=== PATIENT | female | born 1930 | race Caucasian/White ===

== ENCOUNTER 2017-04-10 15:24 | Emergency (ER) | payer MEDICARE, OTHER ==
[~2017-04-10] VITALS: Ht 157.5 cm; Wt 61.2 kg
--- NOTE | 2017-04-10 15:29 | Emergency Room Report ---
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 Clinical Suspician of Infection? Mental Status: Sepsis Risk: Have you (or family members/close friends) recently traveled outside the [place]? If Yes, where/when: Have you had exposure to infectious disease within the past month? TB? Other? Specify: Source patient, RN notes reviewed Exam Limitations no limitations Comment Pt saw Dr. Rodriguez on . She lives alone and family is concerned because she has been acting differently and this happened in the past and was associated with a severe UTI where she was admitted to [facility] for awhile. She has been complaining of a burning sensation in her epigastrium as well and the family is concerned as she is not acting herself and is more volatile towards her sons. Cardiac Chest Pain Chest pain indicative of cardiac No ALLERGIES Coded Allergies: No Known Allergies (04/10/17) Home Medications Active Scripts Fluticasone Propionate (Flonase 50 Mcg Nasal [place]) 1 SPRAY NA BID #1 BOT Prov: 03/31/16 Reported Medications Dofetilide (Tikosyn) 0.25 MG PO BID Rosuvastatin Calcium (Crestor) 40 MG PO DAILY Metoprolol Succinate Xl (Toprol Xl) 50 MG PO BID Torsemide 10 MG PO DAILY Glimepiride 4 MG PO DAILY Apixaban (Eliquis) 2.5 MG PO BID Donepezil HCl (Donepezil 5MG) 5 MG PO DAILY SERTRALINE HCL (Sertraline HCl) 100 MG PO QHS Isosorbide Mononitrate (Imdur) 120 MG PO DAILY POTASSIUM CHL (Potassium Chloride) 10 MEQ PO BID Quetiapine Fumarate (Quetiapine 25MG) 12.5 MG PO BID Telmisartan (Micardis) 80 MG PO DAILY ASPIRIN (Aspirin) 81 MG PO DAILY Montelukast Sodium (Singulair) 10 MG PO QHS History Medical History General CAD? No Angina: Yes [place]: Yes Hypertension? Yes Hyperlipidemia? Yes CHF? No DVT? No PE? No COPD? No Asthma? No Anemia? No GERD? No Gastric ulcers? No GI Bleed? No Hernia? No Thyroid Problems? No Hypothyroidism? No CVA? No Seizures? No Diabetes? Yes Insulin Dependent: No Insulin Pump: No Home FSBS? Yes Renal Insuffiency? No End Stage Renal Disease? No UTI? Yes Stones? No BPH? No GB Disease: Yes Nephritic Syndrome? No Asplenia? No Hepatitis? No Sickle Cell Disease? No Arthritis? No Migraines? No Cataracts? Yes Glaucoma? No MRSA? No HIV? No TB? No Anxiety? No Depression? No Cancer? No More? No Immunization Hx DT/Tetanus NOT SURE Flu 2011-FSN Pneumonia 1-4 YRS Surgical Hx Previous Surgery?Y [place] LEIF CARDIAC STENT PLACEMENT 3 ABLASION FOR A -FIB PACEMAKER PLACEMENT CATARACTS Family History Family Hx Diabetes Yes CAD No Hypertension Yes Hyperlipidemia Yes Cancer Yes TB No Social History Alcohol Alcohol: No Review of Systems All Other Systems Reviewed and Negative Constitutional see HPI Gastrointestinal see HPI Genitourinary see HPI. Psychiatric/Neurological see HPI Physical Exam Vital Signs Vital Signs Date Time Temp Pulse Resp B/P Pulse O2 O2 Flow FiO2 Ox Delivery Rate 04/10 1533 98.7 75 18 115/67 98 General Appearance normal appearance, WD/WN, no apparent distress Respiratory Status No: respiratory distress. Lung Sounds bilateral: normal breath sounds. Cardiovascular irregularly irregular Peripheral Pulses Pulses normal Yes Gastrointestinal normal exam, non tender Neurologic disoriented x 3, demented Medical Decision Making LABS/Meds/Orders Pt receiving controlled substance in ED? No Results/Orders Laboratory Tests 04/10/17 1620: Sodium 136, Potassium 4.6, Chloride 100, Carbon Dioxide 30, BUN 27 H, Creatinine 0.9, Estimated Creat Clear 43 L, Estimated GFR (MDRD) 59, Glucose 182 H, Calcium 9.6, Total Bilirubin 0.3, AST 21, ALT 40, Alkaline Phosphatase 80, Creatine Kinase 43, CK-MB (CK-2) Rel Index 1.2, CK and CKMB Interp < 0.5, Troponin I < 0.02, Total Protein 6.9, Albumin 3.7, Globulin 3.2, Albumin/ Globulin Ratio 1.2, WBC 5.1, RBC 3.74 L, Hgb 11.0 L, Hct 33.8 L, MCV 90.5, RDW 14.1, Plt Count 131 L, Gran % 66.8, Gran # 3.4, Lymphocytes % 28.3, Monocytes % 4.9, Lymphocytes # 1.4, Monocytes # 0.2, PUBS MCHC 32.5, MCH 29.4 Current Medication Orders Sig/Henrietta Start time Last Medication Dose Route Stop Time Status Admin Sodium Chloride 1,000 ML .STK-MED ONE 04/10 161 DC IV Sodium Chloride 10 ML PRN PRN 04/10 1600 AC IV 04/11 155 Sodium Chloride 1,000 ML .[id number] 04/10 1600 AC 04/10 IV 04/11 0353 1616 Sodium Chloride 10 ML PRN PRN 04/10 1600 AC IV 04/11 155 Orders Procedure Date/time Status 12 LEAD EKG-LEA (INITIAL) 04/10 1553 Active ELECTROCARDIOGRAM REQUEST 04/10 1553 Active IV SALINE LOCK 04/10 1553 Active URINALYSIS/COMPLETE 04/10 1553 Active CBC WITH AUTO DIFF 04/10 1553 Complete CARDIAC ENZYMES 04/10 1553 Complete CHEM 12 PROFILE 04/10 1553 Complete CM/EKG CM/contracting specialist Rhythm Atrial paced rhythm with LVH wit repolarization abnormality Departure Departure Time of Disposition 184 Disposition DC Home or Self Care(routine) Clinical Impression Primary Impression: Dementia Qualifiers: Dementia type: Alzheimer's disease Alzheimer's disease onset: late- onset Dementia behavioral disturbance: with behavioral disturbance Qualified Code: G30.1 - Alzheimer's disease with late onset Condition STABLE Referrals Leif Rodriguez MD (Family): 2 Days-Call Office Patient Instructions Alzheimer's Disease, Dementia, DI for Alzheimer's Disease, Vascular Dementia Additional Instructions If urine is not obtainable, pt will be allowed to go home and followup with Dr. Rodriguez to check urine. Sons advised to continue meds as ordered and encourage her to drink more fluids Discharge Counseling Counseled pt/family regarding diagnosis, test results, medications/RX, home care, follow up needs Prescriptions Current Visit Scripts Amoxicillin (Amoxicillin 500MG) 500 MG PO TID #30 CAP ED Critical Care Critical Care No If Critical Care minutes are documented, the time involved in the performance of seperately reportable procedures was not counted toward critical care time documented. I directly delivered medical care to this critically ill and/or injured patient. Timely evaluation and treatment was necessary to address the significant organ system(s) dysfunction present in this patient. at 3306
[2017-04-10 16:35] LABS: LYMPH # 1.4 K/mm3 (0.7-4.5); LYMPH % 28.3 % (10-50.0)
[2017-04-10 16:55] LABS: BUN 27 mg/dL (7-18)
[2017-04-10 16:56] LABS: GFR (ESTIMATED) 59 ML/MIN (59-)
--- NOTE | 2017-04-10 17:30 | RADIOLOGY REPORT PS360 ---
ABDOMEN-FLAT UPRIGHT HISTORY: burning in epigastrium burning epigastric pain Patient Age: 86 years: Female Ordering Physician: Michelle Barry MD TECHNIQUE: .. Flat and upright abdomen views radiograph COMPARISON : CT abdomen November 2015 FINDINGS No acute findings in the abdomen on plain film no free air Nonspecific bowel gas pattern. No bowel dilatation or obstruction. The frontal quadrant from cholecystectomy. Minimal stool and gas throughout the colon with moderate stool in rectosigmoid. Minimal small bowel gas. No air-fluid levels. Likely ingested ovoid pill projected over the distal body of stomach 11 mm size Calcification is a splenic artery similar to previous CT 2016. . Calcification medial to the spleen most likely vascular nature is seen on 2016 CT. . No organomegaly. Numerous phleboliths at the pelvic basin Levoscoliosis degenerative changes spine previous exam. Lung bases partially imaged grossly clear. IMPRESSION: No acute findings on plain film Nonspecific abdomen./Nonspecific bowel gas pattern No bowel dilatation or obstruction. Minor observations
[2017-04-10 18:58] LABS: URINE BILIRUBIN - DIPSTICK NEGATIVE (NEG); URINE BLOOD TRACE-INTACT (NEG)
[2017-04-10 19:02] VITALS: BP 112/70
[2017-04-10 19:17] LABS: URINE SQUAMOUS CELLS 20-50 #/hpf (0-5)
--- OUTSIDE RECORDS SUMMARY | 2017-04-20 04:57 | External Medical Summary Rpt | CCD ---
Author Author Conduent Organization Conduent Address Unknown Phone Unavailable Purpose Continuity of Care Document - through 2016
--- OUTSIDE RECORDS SUMMARY | 2017-04-20 04:57 | External Medical Summary Rpt | CCD ---
Author Author , CHANTELLE Organization CHANTELLE Address Unknown Phone [email or web address] Immunization Name Date Rout CVX Reac Dose Comm Prov Is Faci e tion ent ider Refu lity Give sed n Td 03-0 9 999 Hist H149 No H149 (wilber 7-19 oric lt), 97 al Info adso rmat rbed ion - Sour ce Unsp ecif ied
--- OUTSIDE RECORDS SUMMARY | 2017-04-20 04:57 | External Medical Summary Rpt | CCD ---
Author Author , CHANTELLE Organization [employer] Address Unknown Phone [email or web address] Research Care Team Providers Care Bakery And Deli Sales Manager Name Role Phone Kike Horne Unavailable Unavailable MD, Kike Mccord MD, Unavailable Unavailable Livan Mccord MD Purpose Continuity of Care Document - 11-10-2012 through 2016 Problems Code Diagnosis DOS Provider Status 250.00 250.00 DIAB 01-29-2013 [facility], TYPE Hospital II OR UNSPEC TYPE, NOT UNCNTRLD 401.9 401.9 01-29-2013 [place] HYPERTENSIO [facility] 410.91 410.91 01-29-2013 [place] ACUTE [facility] INFARCT,UNS PEC SITE,INITIA L EPISODE 414.01 414.01 01-29-2013 [place] CORONARY [facility] [place] CORONARY VESSEL 427.31 427.31 01-29-2013 [place] ATRIAL [facility] FIBRILLATIO [facility] N 815.00 815.00 FX 11-28-2012 [place] METACARPAL [facility] NOS-CLOSED Hospital E849.0 E849.0 11-28-[address] [place] [address] [facility] E880.9 E880.9 FALL 11-28-[address] [place] [address] [facility] STAIR/STEP Hospital NEC Allergies, Adverse Reactions, Alerts Type Allergy to substance Adverse Reaction to Substance Substance Reaction Severity NO KNOWN ALLERGIES Unknown Unknown Clinical Alert Notifications Alert Diabetes: no A1C in the last 6 months Diabetes: no eye exam in the last 365 days Diabetes: no influenza vaccine in the last 365 days Diabetes: no lipid panel in the last 365 days Diabetes: no urine protein screening in the last 365 days Medications Na ND Rx Da Fi Fi Am Da Di Ph RX Ph St me C No te ll ll ou ys ag ar # ys at rm s nt no ma ic us Or Da si cy ia de te s n re d TO 00 07 0 No TX 18 -2 OL 61 3- Lo 09 20 ng XL 00 13 er 5 50 Ac ti MG ve TA BL ET FS 07 0 No -2 BL 3- Lo OO 20 ng D 13 er MG GA Ac R ti ve 63 07 0 No PI 73 -2 RI 90 3- Lo N 02 20 ng EC 30 13 er 1 32 Ac 5 ti MG ve TA BL ET PL 63 07 0 No AV 65 -2 IX 31 3- Lo 33 20 ng 30 20 13 er 0 2 MG Ac ti TA ve BL ET AM 51 07 0 No LO 07 -2 DI 90 3- Lo PI 45 20 ng NE 12 13 er 0 BE Ac SY ti LA ve TE 5 MG TA B ME 51 07 0 No TO 07 -2 TX 90 3- Lo OL 80 20 ng OL 12 13 er 0 TA Ac RT ti RA ve TE 50 MG TA B SO 00 07 0 No DI 40 -2 UM 97 3- Lo 98 20 ng CH 30 13 er LO 9 RI Ac DE ti ve 0. 9% SO TAY TI ON DI 00 07 0 No GO 64 -2 XI 11 2- Lo N 41 20 ng 50 03 13 er 0 5 MC Ac G/ ti 2 ve ML AM PU LE SO 00 07 1 No DI 40 -2 UM 97 2- Lo 98 20 ng CH 30 13 er LO 9 RI Ac DE ti ve 0. 9% SO TYA TI ON Sa 63 05 0 No li 80 -2 ne 70 2- Lo 10 20 ng Fl 07 13 er us 5 h Ac 10 ti ML ve Sy ri ng e AC 51 05 0 No ET 07 -2 AM 90 2- Lo IN 16 20 ng OP 19 13 er HE 9H N Ac W/ ti CO ve DE IN E #3 TA K Sa 63 05 0 No li 80 -2 ne 70 2- Lo 10 20 ng Fl 07 13 er us 5 h Ac 10 ti ML ve Sy ri ng e AC 51 05 0 No ET 07 -2 AM 90 2- Lo IN 16 20 ng OP 19 13 er HE 9H N Ac W/ ti CO ve DE IN E #3 TA K Vital Signs 01-29-2013 10:13 Name Value Interpretat Reference Comment ion Range Body 97.6 [degF] Temperature BP 91 mm[Hg] Diastolic BP Systolic 145 mm[Hg] Heart 100 /min Rate/Pulse Respiratory 16 /min Rate 01-29-2013 08:00 Name Value Interpretat Reference Comment ion Range O2% 99 % 01-29-2013 01:10 Name Value Interpretat Reference Comment ion Range Height 157.48 cm Weight 69.882 kg Measured 01-28-2013 22:13 Name Value Interpretat Reference Comment ion Range Body 97.8 [degF] Temperature BP 81 mm[Hg] Diastolic BP Systolic 149 mm[Hg] Heart 116 /min Rate/Pulse O2% 97 % Respiratory 19 /min Rate Weight 0 [oz_av] Measured 11-28-2012 19:00 Name Value Interpretat Reference Comment ion Range BP 70 mm[Hg] Diastolic BP Systolic 160 mm[Hg] Heart 56 /min Rate/Pulse O2% 97 % Respiratory 20 /min Rate 11-28-2012 18:24 Name Value Interpretat Reference Comment ion Range BP 65 mm[Hg] Diastolic BP Systolic 152 mm[Hg] Heart 56 /min Rate/Pulse O2% 95 % Respiratory 16 /min Rate 11-10-2012 04:50 Name Value Interpretat Reference Comment ion Range BP 76 mm[Hg] Diastolic BP Systolic 153 mm[Hg] Heart 60 /min Rate/Pulse O2% 96 % Respiratory 20 /min Rate 11-10-2012 04:18 Name Value Interpretat Reference Comment ion Range BP 76 mm[Hg] Diastolic BP Systolic 170 mm[Hg] Heart 64 /min Rate/Pulse Respiratory 18 /min Rate 11-10-2012 03:37 Name Value Interpretat Reference Comment ion Range O2% 99 % Results Labs Lab Lab Date Result Refere Interp Status Commen Order Detail nces retati t Range on Urinalysis dipstick W Reflex Microscopic panel in Urine (04-10-2017 18:55) Bacteri 4+ O complet a 017 ed [Presen 18:55 ce] in Urine sedimen t by Light microsc opy Erythro NONE 0 complet cytes 017 ed [Presen 18:55 ce] in Urine sedimen t by Light microsc opy Epithel 3-5 NONE complet ial 017 ed cells.r 18:55 enal [Presen ce] in Urine sedimen t by Light microsc opy Epithel 20-50 0#/hp complet ial 017 f - ed cells.s 18:55 5#/hp quamous f [Presen ce] in Urine sedimen t by Microsc opy high power field Leukocy 20-50 O complet tee 017 wbc/hpf ed [#/volu 18:55 me] in Urine Urinalysis dipstick W Reflex Microscopic panel in Urine (04-10-2017 18:55) Appeara SL CLEAR complet nce of 017 CLOUDY ed Urine 18:55 Bilirub NEGATIV NEG complet in 017 E ed [Presen 18:55 ce] in Urine by Test strip Erythro TRACE-I NEG complet cytes 017 NTACT ed [Presen 18:55 ce] in Urine Color YELLOW YELLOW complet of 017 ed Urine 18:55 Ketones NEGATIV NEG complet 017 E ed [Presen 18:55 ce] in Urine by Automat ed test strip Mucus 2+ NEG Abnorma complet [Presen 017 l ed ce] in 18:55 Urine sedimen t by Light microsc opy Nitrite NEGATIV NEG complet 017 E ed [Presen 18:55 ce] in Urine by Test strip Urobili 0.2 NEG complet nogen 017 ed [Presen 18:55 ce] in Urine by Test strip Glucose BldC Glucomtr-mCnc (01-29-2013 06:48) Glucose 152 70-110 complet BldC 013 mg/dl ed Glucomt 06:48 r-nc LIPID PROFILE (01-29-2013 02:25) Cholest 295 Less complet 013 mg/dL than ed SerPl-m 02:25 200 Cnc HDLc 36.0 40-60 complet SerPl-m 013 MG/DL ed Cnc 02:25 LDLc 217.2 0-130 complet SerPl 013 mg/dL ed Calc-mC 02:25 nc VLDL 41.8 0-40 complet CHOLEST 013 UNK ed JENA 02:25 Trigl 01-29- 209 30-200 complet SerPl-m 013 mg/dL ed Cnc 02:25 URINALYSIS/COMPLETE (01-28-2013 22:50) URINE YELLOW YELLOW complet COLOR 013 ed 22:50 URINE 07-22-2 CLEAR CLEAR complet APPEARA 013 ed NCE 22:50 URINE 22-2 NEGATIV NEG complet GLUCOSE 013 E ed - 22:50 DIPSTIC K URINE 01-28-2 NEGATIV NEG complet BILIRUB 013 E ed IN - 22:50 DIPSTIC K URINE 22-2 NEGATIV NEG complet KETONE 013 E mg/dL ed 22:50 URINE 01-28-2 1.015 1.005-1 complet SPECIFI 013 UNK .030 ed C 22:50 GRAVITY URINE 01-28-2 NEGATIV NEG complet BLOOD 013 E ed 22:50 URINE 01-28-2 7.0 UNK 5.0-8.5 complet PH 013 ed 22:50 URINE 01-28-2 NEGATIV NEG complet PROTEIN 013 E mg/dL ed - 22:50 DIPSTIC K URINE 01-28-2 0.2 NEG complet UROBILI 013 E.U./dL ed NOGEN - 22:50 DIPSTIC K URINE 01-28-2 NEGATIV NEG complet NITRATE 013 E ed - 22:50 DIPSTIC K URINE 01-28-2 NEGATIV NEG complet LEUK 013 E ed ESTERAS 22:50 E URINE 01-28-2 OCC 0 complet RBC 013 rbc/hpf ed 22:50 URINE 01-28-2 3-5 O complet WBC 013 wbc/hpf ed 22:50 URINE 01-28-2 OCC 0-5 complet SQUAMOU 013 #/hpf ed S CELLS 22:50 URINE 01-28-2 TRACE O complet BACTERI 013 ed A 22:50 COMPREHENSIVE METABOLIC PANEL (01-28-2013 22:00) Glucose 161 74-106 complet 013 mg/dL ed Bld-mCn 22:00 c BUN 12 7-18 complet Bld-mCn 013 mg/dL ed c 22:00 Creat 0.9 0.6-1.0 complet SerPl-m 013 mg/dL ed Cnc 22:00 ESTIMAT 57 50-200 complet ED 013 ML/MIN ed CREATIN 22:00 INE CLEARAN CE GFR 60 59- complet (ESTIMA 013 ML/MIN ed MARGIE) 22:00 Sodium 136 136-145 complet SerPl-s 013 mmoL/L ed Cnc 22:00 Potassi 3.8 3.5-5.1 complet um 013 mmoL/L ed SerPl-s 22:00 Cnc Chlorid 100 98-107 complet e 013 mmoL/L ed SerPl-s 22:00 Cnc CO2 24 21.0-32 complet SerPl-s 013 mmoL/L .0 ed Cnc 22:00 Calcium 9.6 8.5-10. complet 013 mg/dL 1 ed SerPl-m 22:00 Cnc Prot 7.7 6.4-8.2 complet SerPl-m 013 gm/dL ed Cnc 22:00 Albumin 4.3 3.4-5.0 complet 013 gm/dL ed SerPl-m 22:00 Cnc Globuli 3.4 1.3-3.2 complet n 013 gm/dL ed Ser-mCn 22:00 c Albumin 1.3 UNK 1.1-1.8 complet /Glob 013 ed SerPl-m 22:00 Rto Bilirub 0.6 0.2-1.0 complet 013 mg/dL ed SerPl-m 22:00 Cnc AST 20 U/L 15-37 complet SerPl-c 013 ed Cnc 22:00 ALT 38 U/L 30-65 complet SerPl-c 013 ed Cnc 22:00 ALP 64 U/L 50-136 complet SerPl-c 013 ed Cnc 22:00 T4 SerPl-mCnc (01-28-2013 22:00) T4 12.2 4.7-13. complet SerPl-m 013 ug/dl 3 ed Cnc 22:00 THYROID STIM HORMONE (01-28-2013 22:00) THYROID 3.63 0.358-3 complet STIM 013 uIU/ml .740 ed HORMONE 22:00 PROTIME/INR (01-28-2013 22:00) PROTHRO 11.6 9.9-11. complet MBIN 013 SECONDS 6 ed TIME 22:00 INR Bld 1.08 0.9-1.1 complet 013 UNK ed 22:00 CBC with AUTO DIFF (01-28-2013 22:00) WBC # 01-28-2 7.0 4.8-10. complet Bld 013 K/MM3 8 ed Auto 22:00 RBC # 01-28- 5.22 4.2-5.4 complet Bld 013 M/mm3 ed Auto 22:00 Hgb 15.7 12.2-16 complet Bld-mCn 013 g/dL .2 ed c 22:00 Hct Fr 48.0 % 37.0-47 complet Bld 013 .0 ed 22:00 MCV RBC 91.8 fl 82.2-97 complet 013 .8 ed 22:00 MCH RBC 30.1 pg 27-31.2 complet Qn 013 ed Auto 22:00 MEAN 32.8 31.8-35 complet CORPUSC 013 g/dl .4 ed ULAR 22:00 HGB CONC RDW RBC 13.4 % 11.5-17 complet Auto 013 .5 ed 22:00 Platele 288 142-424 complet t Bld 013 K/mm3 ed Ql 22:00 Manual MEAN 8.5 fl 7.4-10. complet PLATELE 013 4 ed T 22:00 VOLUME Granulo 53.3 % 37.0-80 complet cytes 013 .0 ed Fr Bld 22:00 Auto LYMPH % 01-28-2 39.5 % 10-50.0 complet 013 ed 22:00 Monocyt 01-28-2 6.0 % 1.7-9.3 complet es Fr 013 ed Bld 22:00 Auto Eosinop 01-28-2 0.8 % 0.1-12. complet hil Fr 013 0 ed Bld 22:00 Auto Basophi 01-28-2 0.5 % 0.1-2.0 complet ls Fr 013 ed Bld 22:00 Auto Granulo 01-28-2 3.7 1.8-7.8 complet cytes # 013 K/mm3 ed Bld 22:00 Auto Lymphoc 01-28-2 2.8 0.7-4.5 complet ytes Fr 013 K/mm3 ed Bld 22:00 Auto Monocyt 01-28-2 0.4 0.1-1.0 complet es # 013 K/mm3 ed Bld 22:00 Auto Eosinop 01-28-2 0.1 0.0-0.4 complet hil # 013 K/mm3 ed Bld 22:00 Auto Basophi 01-28-2 0.0 0-0.2 complet ls # 013 K/MM3 ed Bld 22:00 Auto COMPREHENSIVE METABOLIC PANEL (11-10-2012 03:12) Glucose 206 74-106 complet 013 mg/dL ed Bld-mCn 03:12 c BUN 11-10- 27 7-18 complet Bld-mCn 013 mg/dL ed c 03:12 Creat 2 1.0 0.6-1.0 complet SerPl-m 013 mg/dL ed Cnc 03:12 ESTIMAT 52 50-200 complet ED 013 ML/MIN ed CREATIN 03:12 INE CLEARAN CE GFR 53 59- complet (ESTIMA 013 ML/MIN ed MARGIE) 03:12 Sodium 130 136-145 complet SerPl-s 013 mmoL/L ed Cnc 03:12 Potassi 4.3 3.5-5.1 complet um 013 mmoL/L ed SerPl-s 03:12 Cnc Chlorid 96 98-107 complet e 013 mmoL/L ed SerPl-s 03:12 Cnc CO2 26 21.0-32 complet SerPl-s 013 mmoL/L .0 ed Cnc 03:12 Calcium 11-10-2 9.7 8.5-10. complet 013 mg/dL 1 ed SerPl-m 03:12 Cnc Prot 11-10-2 7.2 6.4-8.2 complet SerPl-m 013 gm/dL ed Cnc 03:12 Albumin 04-2 4.0 3.4-5.0 complet 013 gm/dL ed SerPl-m 03:12 Cnc Globuli 11-10-2 3.2 1.3-3.2 complet n 013 gm/dL ed Ser-mCn 03:12 c Albumin 11-10-2 1.3 UNK 1.1-1.8 complet /Glob 013 ed SerPl-m 03:12 Rto Bilirub 05-04-2 0.5 0.2-1.0 complet 013 mg/dL ed SerPl-m 03:12 Cnc AST 05-04-2 23 U/L 15-37 complet SerPl-c 013 ed Cnc 03:12 ALT 05-04-2 38 U/L 30-65 complet SerPl-c 013 ed Cnc 03:12 ALP 05-04-2 19 U/L 50-136 complet SerPl-c 013 ed Cnc 03:12 CBC with AUTO DIFF (11-10-2012 03:12) WBC # 05-04-2 7.1 4.8-10. complet Bld 013 K/MM3 8 ed Auto 03:12 RBC # 05-04-2 4.75 4.2-5.4 complet Bld 013 M/mm3 ed Auto 03:12 Hgb 05-04-2 13.9 12.2-16 complet Bld-mCn 013 g/dL .2 ed c 03:12 Hct Fr 05-04-2 42.3 % 37.0-47 complet Bld 013 .0 ed 03:12 MCV RBC 05-04-2 89.1 fl 82.2-97 complet 013 .8 ed 03:12 MCH RBC 05-04-2 29.3 pg 27-31.2 complet Qn 013 ed Auto 03:12 MEAN 05-04-2 32.9 31.8-35 complet CORPUSC 013 g/dl .4 ed ULAR 03:12 HGB CONC RDW RBC 05-04-2 12.9 % 11.5-17 complet Auto 013 .5 ed 03:12 Platele 05-04-2 300 142-424 complet t Bld 013 K/mm3 ed Ql 03:12 Manual MEAN 05-04-2 7.4 fl 7.4-10. complet PLATELE 013 4 ed T 03:12 VOLUME Granulo 05-04-2 74.6 % 37.0-80 complet cytes 013 .0 ed Fr Bld 03:12 Auto LYMPH % 05-04-2 20.9 % 10-50.0 complet 013 ed 03:12 Monocyt 05-04-2 3.7 % 1.7-9.3 complet es Fr 013 ed Bld 03:12 Auto Eosinop 05-04-2 0.7 % 0.1-12. complet hil Fr 013 0 ed Bld 03:12 Auto Basophi 05-04-2 0.2 % 0.1-2.0 complet ls Fr 013 ed Bld 03:12 Auto Granulo 11-10-2 5.3 1.8-7.8 complet cytes # 013 K/mm3 ed Bld 03:12 Auto Lymphoc 11-10-2 1.5 0.7-4.5 complet ytes Fr 013 K/mm3 ed Bld 03:12 Auto Monocyt 11-10-2 0.3 0.1-1.0 complet es # 013 K/mm3 ed Bld 03:12 Auto Eosinop 11-10-2 0.1 0.0-0.4 complet hil # 013 K/mm3 ed Bld 03:12 Auto Basophi 11-10-2 0.0 0-0.2 complet ls # 013 K/MM3 ed Bld 03:12 Auto Procedures Procedure DOS Code Location Performer Comment APPLICATI 93.54 Livan Marin ON OF [facility] Encounters Encounter Start End Date Code Location Performer Type Date Inpatient NOBLE Horne ([place]) 3 22:34 3 01:00 [facility] R. Emergency YOAV Mccord MD (ER) 3 17:35 3 19:01 [facility] Emergency YOAV Mccord MD (ER) 3 03:28 3 05:02 [facility]
--- OUTSIDE RECORDS SUMMARY | 2017-04-20 04:57 | External Medical Summary Rpt | CCD ---
Author Author , CHANTELLE Organization [employer] Address Unknown Phone [email or web address] Care Team Providers Care Felt Strip Finisher Name Role Phone Kike Horne Unavailable Unavailable MD, Kike Mccord MD, Unavailable Unavailable Livan Mccord MD Purpose Continuity of Care Document - 11-10-2012 through 2016 Problems Code Diagnosis DOS Provider Status 250.00 250.00 DIAB 01-29-2013 [facility], TYPE Hospital II OR UNSPEC TYPE, NOT UNCNTRLD 401.9 401.9 01-29-2013 [place] HYPERTENSIO [facility] Hospital 410.91 410.91 01-29-2013 [place] ACUTE [facility] INFARCT,UNS PEC SITE,INITIA L EPISODE 414.01 414.01 01-29-2013 [place] CORONARY [facility] [place] CORONARY VESSEL 427.31 427.31 01-29-2013 [place] ATRIAL [facility] FIBRILLATIO [facility] N 815.00 815.00 FX 11-28-2012 [place] METACARPAL [facility] NOS-CLOSED Hospital E849.0 E849.0 11-28-2012 [place] ACCIDENT IN [facility] E880.9 E880.9 FALL 11-28-2012 [place] ON [facility] STAIR/STEP Hospital NEC Allergies, Adverse Reactions, Alerts [...] re d TO 00 07 0 No DE 18 -2 OL 61 3- Lo 09 [...] 51 07 0 No TO 07 -2 DE 90 3- Lo OL 80 20 ng [...] ve 0. 9% SO TAY TI ON Sa 63 05 0 No [...] NOBLE Horne ([place]) 3 22:34 3 01:00 [facility] R. Emergency YOAV Mccord MD (ER) 3 17:35 3 19:01 [facility] Emergency YOAV Mccord MD (ER) 3 03:28 3 05:02 [facility]
--- OUTSIDE RECORDS SUMMARY | 2017-04-20 04:57 | External Medical Summary Rpt | CCD ---
Author Author , CHANTELLE Organization [employer] Address Unknown Phone Immunization Name Date Rout CVX Reac Dose Comm Prov Is Faci e tion ent ider Refu lity Give sed n Td 03-0 9 999 Hist H149 No H149 (wilber 7-19 oric lt), 97 al Info adso rmat rbed ion - Sour ce Unsp ecif ied
== END 2017-04-10 19:02 | disposition home or self-care (01) ==
LOC: ER 15:24
PROVIDERS: General Practice
DX: G30.1 Alzheimer's disease with late onset (principal); R10.13 Epigastric pain; Z79.82 Long term (current) use of aspirin; I20.8 Other forms of angina pectoris; I10 Essential (primary) hypertension; E11.65 Type 2 diabetes mellitus with hyperglycemia

== ENCOUNTER 2017-05-24 17:43 | Emergency (ER) | payer MEDICARE, OTHER ==
[~2017-05-24] VITALS: Ht 157.5 cm; Wt 64.4 kg
[~2017-05-24 17:43] MED LIST: AMLO5TAB PO; AMOXICOT500 MG PO; ANTIVERT GENERI25 MG PO; ASPIRIN 81MG TA81 MG PO; CIPRO 500MG TA500 MG PO; COUMADIN2.5 MG PO; COUMADIN5 MG PO; CRESTOR40 MG PO; DONEPEZIL 5MG TA5 MG PO; ELIQUIS2.5 MG PO; Estrace 1MG Tabl1 MG PO; FENOFIBRATE160 MG PO; FLONASE 50 MCG16 GM; GLIMEPIRIDE4 MG PO; IMDUR120 MG PO; ISOSORBIDE MON120 MG PO; LEVAQUIN 750 M750 MG PO; LEXAPRO 10 MG T10 MG PO; LOTREL 10 MG-201 CAP PO; LOVAZA1 GM PO; MEDROL 4MG. DOSE4 MG PO; METOPROLOL50 MG PO; METRONIDAZOLE500 MG PO; MICARDIS HCT 251 TAB PO; MICARDIS80 MG PO; NEXIUM40 MG PO; NITROSTAT 0.4M0.4 MG SL; OMEGA-31000 MG PO; PHENERGAN 25MG.25 M1 PO; POTASSIUM CHLO10 ME3 PO; PRADAXA75 MG PO; QUETIAPINE FUMA25 MG PO; SERTRALINE50 M1 PO; SINGULAIR10 MG PO; TEKTURNA HCT 151 TA1 PO; TEKTURNA150 MG PO; TIKOSYN0.25 MG PO; TOPROL XL 100M100 MG PO; TOPROL XL50 MG PO; TORSEMIDE 20MG20 MG PO; TORSEMIDE10 MG PO; TORSEMIDE20 MG PO; TRICOR145 MG PO; TRILIPIX45 M1 PO; VYTORIN 10 MG-41 TAB PO; XANAX 0.25MG0.25 MG PO; XANAX0.25 MG PO; ZYRTEC10 M2 PO
--- OUTSIDE RECORDS SUMMARY | 2017-05-24 18:18 | External Medical Summary Rpt ---
Author Author CHANTELLE Gardner, [employer] Organization [employer] Address Unknown Phone Unavailable Results Urinalysis dipstick W Reflex Microscopic panel in Urine Observa Value Referen Units Interpr Notes Date tion ce etation Range Appeara SL CLEAR No No No Apr 2 nce of CLOUDY informa informa informa 2016 Urine tion in tion in tion in 6:55 PM source source source data data data Bacteri 4+ O No No No Apr 2 a informa informa informa 2016 [Presen tion in tion in tion in 6:55 PM ce] in source source source Urine data data data sedimen t by Light microsc opy Bilirub NEGATIV NEG No No No Apr 2 in E informa informa informa 2016 [Presen tion in tion in tion in 6:55 PM ce] in source source source Urine data data data by Test strip Erythro TRACE-I NEG No No No Apr 2 cytes NTACT informa informa informa 2016 [Presen tion in tion in tion in 6:55 PM ce] in source source source Urine data data data Color YELLOW YELLOW No No No Apr 2 of informa informa informa 2016 Urine tion in tion in tion in 6:55 PM source source source data data data Glucose NEG No No No Apr 2 [Mass/vol informati informati informati 2016 6:55 ume] in on in on in on in PM Urine by source source source Test data data data strip Ketones NEGATIV NEG mg/dL No No Apr 2 E informa informa 2016 [Presen tion in tion in 6:55 PM ce] in source source Urine data data by Automat ed test strip Mucus 2+ NEG No Abnorma No Apr 2 [Presen informa l informa 2016 ce] in tion in tion in 6:55 PM Urine source source sedimen data data t by Light microsc opy Nitrite NEGATIV NEG No No No Apr 10 E informa informa informa 2017 [Presen tion in tion in tion in 6:55 PM ce] in source source source Urine data data data by Test strip pH of 5.0 - 8.5 No Normal No Apr 2 Urine informati informati 2017 6:55 on in on in PM source source data data Protein NEG mg/dL No No Apr 2 [Mass/vol informati informati 2016 6:55 ume] in on in on in PM Urine by source source Automated data data test strip Erythro NONE 0 rbc/hpf No No Apr 10 cytes informa informa 2016 [Presen tion in tion in 6:55 PM ce] in source source Urine data data sedimen t by Light microsc opy Epithel 3-5 NONE #/HPF No No Apr 10 ial informa informa 2016 cells.r tion in tion in 6:55 PM enal source source [Presen data data ce] in Urine sedimen t by Light microsc opy Specific 1.005 - No Normal No Apr 10 gravity 1.030 informati informati 2016 6:55 of Urine on in on in PM source source data data Epithel 20-50 0 - 5 #/hpf No No Apr 10 ial informa informa 2016 cells.s tion in tion in 6:55 PM quamous source source data data [Presen ce] in Urine sedimen t by Microsc opy high power field Urobili 0.2 NEG E.U./dL No No Apr 10 nogen informa informa 2016 [Presen tion in tion in 6:55 PM ce] in source source Urine data data by Test strip Leukocy [20 O wbc/hpf No No Apr 2 tee wbc/hpf informa informa 2016 [#/volu ; 50 tion in tion in 6:55 PM me] in wbc/hpf source source Urine ] data data WBC casts NONE #/lpf No No Apr 10 [#/area] informati informati 2016 6:55 in Urine on in on in PM sediment source source by data data Microscop y low power field Urinalysis dipstick W Reflex Microscopic panel in Urine Observa Value Referen Units Interpr Notes Date tion ce etation Range Appeara SL CLEAR No No No Apr 2 nce of CLOUDY informa informa informa 2017 Urine tion in tion in tion in 6:55 PM source source source data data data Bilirub NEGATIV NEG No No No Oct 2 in E informa informa informa 2016 [Presen tion in tion in tion in 6:55 PM ce] in source source source Urine data data data by Test strip Erythro TRACE-I NEG No No No Oct 2 cytes NTACT informa informa informa 2016 [Presen tion in tion in tion in 6:55 PM ce] in source source source Urine data data data Color YELLOW YELLOW No No No Oct 2 of informa informa informa 2016 Urine tion in tion in tion in 6:55 PM source source source data data data Glucose NEG No No No Oct 2 [Mass/vol informati informati informati 2016 6:55 ume] in on in on in on in PM Urine by source source source Test data data data strip Ketones NEGATIV NEG mg/dL No No Oct 2 E informa informa 2016 [Presen tion in tion in 6:55 PM ce] in source source Urine data data by Automat ed test strip Mucus 2+ NEG No Abnorma No Oct 2 [Presen informa l informa 2016 ce] in tion in tion in 6:55 PM Urine source source sedimen data data t by Light microsc opy Nitrite NEGATIV NEG No No No Oct 2 E informa informa informa 2016 [Presen tion in tion in tion in 6:55 PM ce] in source source source Urine data data data by Test strip pH of 5.0 - 8.5 No Normal No Oct 2 Urine informati informati 2017 6:55 on in on in PM source source data data Protein NEG mg/dL No No Oct 2 [Mass/vol informati informati 2016 6:55 ume] in on in on in PM Urine by source source Automated data data test strip Specific 1.005 - No Normal No Oct 2 gravity 1.030 informati informati 2017 6:55 of Urine on in on in PM source source data data Urobili 0.2 NEG E.U./dL No No Oct 2 nogen informa informa 2016 [Presen tion in tion in 6:55 PM ce] in source source Urine data data by Test strip CBC W Auto Differential panel in Blood Observa Value Referen Units Interpr Notes Date tion ce etation Range Granulocy 1.8 - 7.8 K/mm3 Normal No Oct 2 tee informati 2016 4:20 [#/volume on in PM ] in source Blood by data Automated count Granulocy 37.0 - % Normal No Oct 2 tee/100 80.0 informati 2017 4:20 leukocyte on in PM s in source Blood by data Automated count Hematocri 37.0 - % Low No Apr 2 t [Volume 47.0 informati 2016 4:20 on in PM Fraction] source of Blood data Hemoglobi 12.2 - g/dL Low No Oct 2 n 16.2 informati 2017 4:20 [Mass/vol on in PM ume] in source Blood data Lymphocyt 0.7 - 4.5 K/mm3 Normal No Apr 2 es informati 2017 4:20 [#/volume on in PM ] in source Unspecifi data ed specimen by Automated count Lymphocyt 10 - 50.0 % Normal No Apr 2 es informati 2016 4:20 [#/volume on in PM ] in source Unspecifi data ed specimen by Automated count Erythrocy 27 - 31.2 pg Normal No Apr 2 te mean informati 2017 4:20 corpuscul on in PM ar source hemoglobi data n [Entitic mass] Erythrocy 31.8 - g/dl Normal No Apr 2 te mean 35.4 informati 2017 4:20 corpuscul on in PM ar source hemoglobi data n concentra tion [Mass/vol ume] by Automated count Erythrocy 82.2 - fL Normal No Apr 2 te mean 97.8 informati 2016 4:20 corpuscul on in PM ar volume source [Entitic data volume] by Automated count Monocytes 0.1 - 1.0 K/mm3 Normal No Oct 2 informati 2017 4:20 [#/volume on in PM ] in source Blood by data Automated count Monocytes 1.7 - 9.3 % Normal No Oct 2 /100 informati 2017 4:20 leukocyte on in PM s in source Blood by data Automated count Platelets 142 - 424 K/mm3 Low No Oct 2 informati 2017 4:20 [#/volume on in PM ] in source Blood data Erythrocy 4.2 - 5.4 M/mm3 Low No Oct 2 tee informati 2017 4:20 [#/volume on in PM ] in source Amniotic data fluid Erythrocy 11.5 - % Normal No Oct 2 te 17.5 informati 2016 4:20 distribut on in PM ion width source [Entitic data volume] by Automated count Leukocyte 4.8 - K/mm3 Normal No Oct 2 s 10.8 informati 2017 4:20 [#/volume on in PM ] in source Blood data
--- OUTSIDE RECORDS SUMMARY | 2017-05-24 18:18 | External Medical Summary Rpt | CCD ---
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 Name Role Phone Kike Horne Unavailable Unavailable MD, Kike Mccord MD, Unavailable Unavailable Livan Mccord MD Purpose Continuity of Care Document - 11-10-2012 through 2016 Problems Code Diagnosis DOS Provider Status 250.00 250.00 DIAB 01-29-2013 [facility], TYPE Hospital II OR UNSPEC TYPE, NOT UNCNTRLD 401.9 401.9 01-29-2013 Mccracken HYPERTENSIO [facility] 410.91 410.91 01-29-2013 Mccracken ACUTE [facility] INFARCT,UNS PEC SITE,INITIA L EPISODE 414.01 414.01 01-29-2013 Mccracken CORONARY [facility] [place] CORONARY VESSEL 427.31 427.31 01-29-2013 Mccracken [facility] 8[facility].00 FX 11-28-2012 Mccracken METACARPAL [facility] NOS-CLOSED Hospital E849.0 E849.0 11-28-2012 Mccracken ACCIDENT IN [facility] E880.9 E880.9 FALL 11-28-2012 [facility] STAIR/STEP Hospital NEC 611.72 F03.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 BENIGN PAROXYSMAL VERTIGO, UNSPECIFIED EAR I48.2 CHRONIC ATRIAL FIBRILLATIO N I95.9 HYPOTENSION , UNSPECIFIED R06.89 OTHER ABNORMALITI ES OF BREATHING R09.81 NASAL CONGESTION R10.9 UNSPECIFIED ABDOMINAL PAIN S09.90XA UNSPECIFIED INJURY OF HEAD, INITIAL ENCOUNTER T14.8 OTHER INJURY OF UNSPECIFIED BODY REGION T14.8XXA OTHER INJURY OF UNSPECIFIED BODY REGION, INITIAL ENCOUNTER W19.XXXA UNSPECIFIED FALL, INITIAL ENCOUNTER Allergies, Adverse Reactions, Alerts Type Allergy to [...] re d TO 00 07 0 No SC 18 -2 OL 61 3- Lo 09 20 ng XL 00 13 er 5 50 Ac ti MG ve TA BL ET FS 07 0 No -2 BL 3- Lo OO 20 ng D 13 er MG GA Ac R ti ve As 63 07 0 No pi 73 -2 ri 90 3- Lo n 02 20 ng EC 30 13 er 1 32 Ac 5M ti G ve Ta bl et PL 63 07 0 No AV 65 [...] 51 07 0 No TO 07 -2 SC 90 3- Lo OL 80 20 ng OL 12 13 er 0 TA Ac RT ti RA ve TE 50 MG TA B SO 00 07 0 No DI 40 -2 UM 97 3- Lo 98 20 ng CH 30 13 er LO 9 RI Ac DE ti ve 0. 9% SO TAY TI ON As 63 07 0 No pi 73 -2 ri 90 3- Lo n 02 20 ng EC 30 13 er 1 32 Ac 5M ti G ve Ta bl et SO 00 07 1 No DI 40 [...] ti 2 ve ML AM PU LE Sa 63 05 0 No li 80 [...] than ed SerPl-m 02:25 200 Cnc HDLc 23-2 36.0 40-60 complet SerPl-m 013 MG/DL ed Cnc 02:25 LDLc 23-2 217.2 0-130 complet SerPl 013 mg/dL ed Calc-mC 02:25 nc VLDL 01-29-2 41.8 0-40 complet CHOLEST 013 UNK ed JENA 02:25 Trigl 23-2 209 30-200 complet SerPl-m 013 mg/dL ed Cnc 02:25 URINALYSIS/COMPLETE (01-28-2013 22:50) URINE 01-28-2 YELLOW YELLOW complet COLOR 013 ed 22:50 URINE 01-28-2 CLEAR CLEAR complet APPEARA 013 ed NCE 22:50 URINE 01-28-2 NEGATIV NEG complet GLUCOSE 013 E ed - 22:50 DIPSTIC K URINE 22-2 NEGATIV NEG complet BILIRUB 013 E ed IN - 22:50 DIPSTIC K URINE 22-2 NEGATIV NEG complet KETONE 013 E mg/dL ed 22:50 URINE 01-28-2 1.015 1.005-1 complet SPECIFI 013 UNK .030 ed C 22:50 GRAVITY URINE -22-2 NEGATIV NEG complet BLOOD 013 E ed 22:50 URINE 01-28-2 7.0 UNK 5.0-8.5 complet PH 013 ed 22:50 URINE 22-2 NEGATIV NEG complet PROTEIN 013 E mg/dL ed - 22:50 DIPSTIC K URINE 22-2 0.2 NEG complet UROBILI 013 E.U./dL ed NOGEN - 22:50 DIPSTIC K URINE 22-2 NEGATIV NEG complet NITRATE 013 E ed - 22:50 DIPSTIC K URINE 07-22-2 NEGATIV NEG complet LEUK 013 E ed ESTERAS 22:50 E URINE 01-28-2 OCC 0 complet RBC 013 rbc/hpf ed 22:50 URINE 22-2 3-5 O complet WBC 013 wbc/hpf ed 22:50 URINE 22-2 OCC 0-5 complet SQUAMOU 013 #/hpf ed S CELLS 22:50 URINE 22-2 TRACE O complet BACTERI 013 ed A 22:50 COMPREHENSIVE METABOLIC PANEL (01-28-2013 22:00) Glucose 07-22-2 161 74-106 complet 013 mg/dL ed Bld-mCn [...] with AUTO DIFF (01-28-2013 22:00) WBC # 01-28- 7.0 4.8-10. complet Bld 013 K/MM3 8 ed Auto 22:00 RBC # 5.22 4.2-5.4 complet Bld 013 M/mm3 ed [...] ed Fr Bld 22:00 Auto LYMPH % 39.5 % 10-50.0 complet 013 ed 22:00 Monocyt 07-22-2 6.0 % 1.7-9.3 complet es Fr 013 ed Bld 22:00 Auto Eosinop -22-2 0.8 % 0.1-12. complet hil Fr 013 0 ed Bld 22:00 Auto Basophi 22-2 0.5 % 0.1-2.0 complet ls Fr 013 ed Bld 22:00 Auto Granulo 22-2 3.7 1.8-7.8 complet cytes # 013 K/mm3 ed Bld 22:00 Auto Lymphoc 22-2 2.8 0.7-4.5 complet ytes Fr 013 K/mm3 ed Bld 22:00 Auto Monocyt -22-2 0.4 0.1-1.0 complet es # 013 K/mm3 ed Bld 22:00 Auto Eosinop 22-2 0.1 0.0-0.4 complet hil # 013 K/mm3 ed Bld 22:00 Auto Basophi 22-2 0.0 0-0.2 complet ls # 013 K/MM3 ed Bld 22:00 Auto COMPREHENSIVE METABOLIC PANEL (11-10-2012 03:12) Glucose 206 74-106 complet 013 mg/dL ed Bld-mCn 03:12 c BUN 27 7-18 complet Bld-mCn 013 mg/dL ed c 03:12 Creat 1.0 0.6-1.0 complet SerPl-m 013 mg/dL ed [...] 013 mmoL/L .0 ed Cnc 03:12 Calcium 9.7 8.5-10. complet 013 mg/dL 1 ed SerPl-m 03:12 Cnc Prot 05-04-2 7.2 6.4-8.2 complet SerPl-m 013 gm/dL ed Cnc 03:12 Albumin 05-04-2 4.0 3.4-5.0 complet 013 gm/dL ed SerPl-m 03:12 Cnc Globuli 05-04-2 3.2 1.3-3.2 complet n 013 gm/dL ed Ser-mCn 03:12 c Albumin 05-04-2 1.3 UNK 1.1-1.8 complet /Glob 013 ed [...] g/dL .2 ed c 03:12 Hct Fr -04-2 42.3 % 37.0-47 complet Bld 013 .0 ed 03:12 MCV RBC 05-04-2 89.1 fl 82.2-97 complet 013 .8 ed 03:12 MCH RBC 05-04-2 29.3 pg 27-31.2 complet Qn 013 ed Auto 03:12 MEAN 05-04-2 32.9 31.8-35 complet CORPUSC 013 g/dl .4 ed ULAR 03:12 HGB CONC RDW RBC 05-04-2 12.9 % 11.5-17 complet Auto 013 .5 ed 03:12 Platele -04-2 300 142-424 complet t Bld 013 K/mm3 ed Ql 03:12 Manual MEAN -04-2 7.4 fl 7.4-10. complet PLATELE 013 4 [...] Fr 013 ed Bld 03:12 Auto Granulo 05-04-2 5.3 1.8-7.8 complet cytes # 013 K/mm3 ed Bld 03:12 Auto Lymphoc 05-04-2 1.5 0.7-4.5 complet ytes Fr 013 K/mm3 ed Bld 03:12 Auto Monocyt 05-04-2 0.3 0.1-1.0 complet es # 013 K/mm3 ed Bld 03:12 Auto Eosinop 05-04-2 0.1 0.0-0.4 complet hil # 013 K/mm3 ed Bld 03:12 Auto Basophi 05-04-2 0.0 0-0.2 complet ls # 013 K/MM3 ed Bld 03:12 Auto Procedures Procedure DOS Code Location Performer Comment APPLICATI 93.54 [facility] Encounters Encounter Start End Date Code Location Performer Type Date Inpatient NOBLE Horne ([place]) 3 22:34 3 01:00 [facility] R. Emergency YOAV Mccord MD (ER) 3 17:35 3 19:01 [facility] Emergency YOAV Mccord MD (ER) 3 03:28 3 05:02 [facility]
--- OUTSIDE RECORDS SUMMARY | 2017-05-24 18:18 | External Medical Summary Rpt | CCD ---
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 Name Role Phone Kike Horne Unavailable Unavailable MD, Kike Mccord MD, Unavailable Unavailable Livan Mccord MD Purpose Continuity of Care Document - 11-10-2012 through 2016 Problems Code Diagnosis DOS Provider Status 250.00 250.00 DIAB 01-29-2013 [facility], TYPE Hospital II OR UNSPEC TYPE, NOT UNCNTRLD 401.9 401.9 01-29-2013 Jensen HYPERTENSIO [facility] 410.91 410.91 01-29-2013 Jensen ACUTE [facility] INFARCT,UNS PEC SITE,INITIA L EPISODE 414.01 414.01 01-29-2013 Jensen CORONARY [facility] [place] CORONARY VESSEL 427.31 427.31 01-29-[address] [facility] 8[facility]00 815.00 FX 11-28-[address] [facility] NOS-CLOSED Hospital E849.0 E849.0 11-28-2012 Jensen ACCIDENT IN [facility] E880.9 E880.9 FALL 11-28-2012 [facility] STAIR/STEP Hospital NEC 611.72 F03.90 UNSPECIFIED [...] re d TO 00 07 0 No MI 18 -2 OL 61 3- Lo 09 [...] 51 07 0 No TO 07 -2 MI 90 3- Lo OL 80 20 ng [...] (IN) 3 22:34 3 01:00 [facility] R. Emergency YOAV Mccord MD (ER) 3 17:35 3 19:01 [facility] Emergency YOAV Mccord MD (ER) 3 03:28 3 05:02 [facility]
--- OUTSIDE RECORDS SUMMARY | 2017-05-24 18:18 | External Medical Summary Rpt | CCD ---
Author Author , CHANTELLE Organization CHANTELLE Address Unknown Phone [email or web address] Immunization Name Date Rout CVX Reac Dose Comm Prov Is Faci e tion ent ider Refu lity Give sed n Td 03-0 9 999 Hist H149 No H149 (wilber 7-19 oric lt), 97 al Info adso rmat rbed ion - Sour ce Unsp ecif ied
--- NOTE | 2017-05-24 18:24 | Emergency Room Report ---
History of Present Illness Time Seen by 1814 Presenting Problem in Triage Pt arrived:Walked Presenting Problem:SON STATES THAT PT HAS INCREASE CONFUSION SINCE LASTNIGHT. 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 N Clinical Suspician of Infection? N Mental Status: 3 - Acutely Altered Sepsis Risk:Low Sepsis Risk Have you (or family members/close friends) recently traveled outside the [place]? N If Yes, where/when: Have you had exposure to infectious disease within the past month? N TB? Other? Specify: Source patient, RN notes reviewed, family, RN/MD Exam Limitations no limitations Comment This is an 86-year-old female patient brought him to the ER by her sons stating that she has been confused, off-and-on, for the past 24 hours. On a previous presentation patient had a urinary tract infection which caused her to be confused, with family members believing this may be the trigger in this specific situation as well. Family members deny any change in her recent medications, recent travel, recent exposure to sick contacts, head injury, falls , etc. ALLERGIES Coded Allergies: No Known Allergies (04/10/17) Home Medications Active Scripts Fluticasone Propionate (Flonase 50 Mcg Nasal Dwight) 1 SPRAY NA BID #1 BOT Prov: 03/31/16 Reported Medications Dofetilide (Tikosyn) 0.25 MG PO BID Rosuvastatin Calcium (Crestor) 40 MG PO DAILY Metoprolol Succinate Xl (Toprol Xl) 50 MG PO BID Torsemide 10 MG PO DAILY Glimepiride 4 MG PO DAILY Apixaban (Eliquis) 2.5 MG PO BID Donepezil HCl (Donepezil 5MG) 5 MG PO DAILY SERTRALINE HCL (Sertraline HCl) 100 MG PO QHS Isosorbide Mononitrate (Imdur) 120 MG PO DAILY POTASSIUM CHL (Potassium Chloride) 10 MEQ PO BID Quetiapine Fumarate (Quetiapine 25MG) 12.5 MG PO BID Telmisartan (Micardis) 80 MG PO DAILY ASPIRIN (Aspirin) 81 MG PO DAILY Montelukast Sodium (Singulair) 10 MG PO QHS History Medical History General CAD? No Angina: Yes GA: Yes Hypertension? Yes Hyperlipidemia? Yes CHF? No DVT? No PE? No COPD? No Asthma? No Anemia? No GERD? No Gastric ulcers? No GI Bleed? No Hernia? No Thyroid Problems? No Hypothyroidism? No CVA? No Seizures? No Diabetes? Yes Insulin Dependent: No Insulin Pump: No Home FSBS? Yes Renal Insuffiency? No End Stage Renal Disease? No UTI? Yes Stones? No BPH? No GB Disease: Yes Nephritic Syndrome? No Asplenia? No Hepatitis? No Sickle Cell Disease? No Arthritis? No Migraines? No Cataracts? Yes Glaucoma? No MRSA? No HIV? No TB? No Anxiety? No Depression? No Cancer? No More? No Immunization Hx DT/Tetanus NOT SURE Flu 2011-FSN Pneumonia 1-4 YRS Surgical Hx Previous Surgery?Y [place] LEIF CARDIAC STENT PLACEMENT 3 ABLASION FOR A -FIB PACEMAKER PLACEMENT CATARACTS Family History Family Hx Diabetes Yes CAD No Hypertension Yes Hyperlipidemia Yes Cancer Yes TB No Social History Smoking Hx Smoker: Never Smoker Tobacco: No Alcohol Alcohol: No Review of Systems All Other Systems Reviewed and Negative Psychiatric/Neurological other (confusion) Physical Exam Vital Signs Vital Signs Date Time Temp Pulse Resp B/P Pulse O2 O2 Flow FiO2 Ox Delivery Rate 05/24 1909 97.5 91 18 119/65 94 05/24 1854 97.5 91 18 119/65 94 05/24 1755 97.9 102 18 128/67 94 General Appearance normal appearance, WD/WN, no apparent distress Eye Exam - bilateral eye normal exam, bilateral eye PERRL, bilateral eye EOMI Ear, Nose, Throat hearing grossly normal, normal ENT inspection Respiratory Status Yes: trachea midline, chest symmetrical, non tender chest. No: respiratory distress. Lung Sounds bilateral: normal breath sounds, lungs clear. 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 No Comment 1834-patient reevaluated, she appears awake, alert, oriented x3, in no acute distress, medically stable, afebrile. Given the urinalysis results will start antibiotics, and have patient follow-up with her PCP per discharge instructions if no better. Results/Orders Laboratory Tests 05/24/17 1853: Urine Color Cancelled, Urine Appearance Cancelled, Urine pH Cancelled, Ur Specific [place] Cancelled 05/24/171835: Urine Color RAYMON, Urine Appearance Sl Cloudy, Urine pH 5.0, Ur Specific [place] 1.020, Urine Protein TRACE H, Urine Clinitest NEGATIVE, Urine Ketones NEGATIVE, Urine Blood TRACE H, Urine Nitrate POSITIVE H, Urine Bilirubin NEGATIVE, Urine Urobilinogen 0.2, Ur Leukocyte Esterase 3+ H, Urine Glucose NEGATIVE 05/24/17 1748: Urine Color Cancelled, Urine Appearance Cancelled, Urine pH Cancelled, Ur Specific [place] Cancelled Current Medication Orders Sig/[place] Start time Last Medication Dose Route Stop Time Status Admin Trimethoprim/ 0 .STK-MED ONE 05/24 1906 DC Sulfamethoxazole PO Trimethoprim/ 1 TABLET ONCE ONE 05/24 1900 DCr 05/24 Sulfamethoxazole PO 05/24 1901 190 Orders Procedure Date/time Status CULTURE, URINE 05/24 1836 Active URINALYSIS/COMPLETE 05/24 1836 Complete Departure Departure Time of Disposition 1855 Disposition DC Home or Self Care(routine) Clinical Impression Primary Impression: UTI (urinary tract infection) Qualifiers: Urinary tract infection type: acute cystitis Hematuria presence: without hematuria Qualified Code: N30.00 - Acute cystitis without hematuria Condition STABLE Patient Instructions DI for Urinary Tract Infection (UTI) Additional Instructions Please drink plenty of fluids, take the medications prescribed as directed, follow up with PCP if not better within 2 days. Discharge Counseling Counseled pt/family regarding diagnosis, test results, medications/RX, home care, follow up needs Comment Please drink plenty of fluids, take the medications prescribed as directed, follow up with PCP if not better within 2 days. Prescriptions Current Visit Scripts SULFAMETHOXAZOLE W/TRIMETHOPRI (Bactrim Ds Tab) 1 TABLET PO BID #20 TAB ED Critical Care Critical Care No at 0918
[2017-05-24 18:58] LABS: URINE BILIRUBIN - DIPSTICK NEGATIVE (NEG)
[2017-05-24 18:59] LABS: URINE BLOOD TRACE (NEG)
[2017-05-24] MEDS ORDERED: BACTRIM DS 8001 TA1 PO (18:59)
[2017-05-24 19:09] VITALS: BP 119/65
== END 2017-05-24 19:09 | disposition home or self-care (01) ==
LOC: ER 17:43
PROVIDERS: Emergency Medicine
DX: N30.00 Acute cystitis without hematuria (principal); Z79.899 Other long term (current) drug therapy; E11.9 Type 2 diabetes mellitus without complications; E78.5 Hyperlipidemia, unspecified; I10 Essential (primary) hypertension